=== PATIENT | female | born 1995 | race Caucasian/White ===

== ENCOUNTER 2016-06-17 13:41 | Inpatient (IN) | payer OTHER ==
[2016-06-17] MEDS ORDERED: Acetaminophen TAB* 325 MG PO ONE (14:18)
[2016-06-17 14:41] LABS: Hematocrit 36 % (35-47); Hemoglobin 12.1 g/dl (12.0-16.0); Mean Corpuscular HGB Conc 34 g/dl (31-36); Mean Corpuscular Hemoglobin 29 pg (27-31); Mean Corpuscular Volume 87 fL (80-97); Mean Platelet Volume 8 um3 (7.4-10.4); Red Blood Count 4.17 10^6/ul (4.0-5.4); Red Cell Distribution Width 15 % (10.5-15); White Blood Count 16.1 10^3/ul (3.5-10.8)
[2016-06-17 14:59] LABS: Urine Total Protein/24HR 217 mg/24Hr (0-165)
[2016-06-17] MEDS ORDERED: Acetaminophen TAB* 325 MG ONE (15:02)
[2016-06-17 15:03] LABS: Albumin 3.4 g/dL (3.2-5.2); BUN/Creatinine Ratio 14.9 (8-20); Calcium 8.7 mg/dL (8.6-10.3); EGFR African American 142.9 (>60); EGFR Non-African American 111.1 (>60); Globulin 2.7 g/dL (2-4); Potassium 3.8 mmol/L (3.5-5.0); Total Bilirubin 0.3 mg/dL (0.2-1.0); Total Protein 6.1 g/dL (6.4-8.9); Uric Acid 4.4 mg/dL (2.3-6.6)
[2016-06-17] MEDS ORDERED: Oxytocin in LR* 20 UNITS/1,000 ML BAG IVPB SCH (16:00)
[2016-06-17] MEDS ORDERED: fentaNYL* 50 MCG/ML 2 ML VIAL (100 MCG VIAL) IV SLOW PU ONE (20:30)
[2016-06-17] MEDS ORDERED: OBEPIDURAL* 250 ML ONE (21:05)
[2016-06-18] MEDS ORDERED: Glycerin ADULT SUPP PR PRN (04:57)
[2016-06-18] MEDS ORDERED: Acetaminophen TAB* 325 MG PO PRN (04:57)
[2016-06-18] MEDS ORDERED: Oxytocin in LR* 20 UNITS/1,000 ML BAG IVPB SCH (05:00)
[2016-06-18] MEDS: Ibuprofen TAB* 600 MG PO PRN ×2 (06:15→15:26)
[2016-06-18] MEDS: Witch Hazel PAD* JAR TOPICAL PRN (06:15)
[2016-06-18] MEDS: Dibucaine 1% 28.35 GM TUBE PR PRN (06:15)
[2016-06-18] MEDS ORDERED: Simethicone TAB* 80 MG TAB.CHEW PO SCH (08:30)
[2016-06-18] MEDS: Docusate CAP* 100 MG PO SCH ×3 (09:09→19:44)
[2016-06-18] MEDS: oxyCODONE/Acetamin 5/325 MG* TAB PO PRN (19:44)
[2016-06-19] MEDS: oxyCODONE/Acetamin 5/325 MG* TAB PO PRN ×3 (04:07→12:35)
[2016-06-19] MEDS: Docusate CAP* 100 MG PO SCH ×3 (08:02→20:12)
[2016-06-19 08:16] LABS: Hematocrit 30 % (35-47); Mean Corpuscular HGB Conc 34 g/dl (31-36); Mean Corpuscular Hemoglobin 30 pg (27-31); Mean Corpuscular Volume 88 fL (80-97); Mean Platelet Volume 7 um3 (7.4-10.4); Red Blood Count 3.35 10^6/ul (4.0-5.4); Red Cell Distribution Width 15 % (10.5-15); White Blood Count 13.8 10^3/ul (3.5-10.8)
[2016-06-19] MEDS: Ferrous Gluconate TAB* 324 MG TAB PO SCH ×2 (08:51→20:11)
[2016-06-19] MEDS: Ibuprofen TAB* 600 MG PO PRN (18:07)
[2016-06-19] MEDS: Witch Hazel PAD* JAR TOPICAL PRN (21:11)
[2016-06-20 09:05] VITALS: BP 145/74
[2016-06-20] MEDS: Witch Hazel PAD* JAR TOPICAL PRN (10:54)
[2016-06-20] MEDS: Dibucaine 1% 28.35 GM TUBE PR PRN (10:55)
== END 2016-06-20 10:58 | disposition home or self-care (01) | DRG 560 ==
LOC: MCHOBOUT 13:41 → MCHOB 14:08
PROVIDERS: ADMIT Midwife; ATTEND Midwife
PROC: 10E0XZZ Delivery of Products of Conception, External Approach (ICD-10-PCS; principal; 2016-06-18)
PROC: 10907ZC Drainage of Amniotic Fluid, Therapeutic from Products of Conception, Via Natural or Artificial Opening (ICD-10-PCS; 2016-06-18)
PROC: 3E033VJ Introduction of Other Hormone into Peripheral Vein, Percutaneous Approach (ICD-10-PCS; 2016-06-18)
DX: O13.4 Gestational [pregnancy-induced] hypertension without significant proteinuria, complicating childbirth (principal); O99.344 Other mental disorders complicating childbirth; F17.210 Nicotine dependence, cigarettes, uncomplicated; O77.0 Labor and delivery complicated by meconium in amniotic fluid; O99.334 Smoking (tobacco) complicating childbirth; F32.89 Other specified depressive episodes; Z3A.39 39 weeks gestation of pregnancy; Z37.0 Single live birth
CPT/HCPCS: 36415; 80053; 84156; 84550; 85025; 86850; 86900; 86901; A9270-GY; J3010

== ENCOUNTER 2018-04-15 20:14 | Inpatient (IN) | payer OTHER ==
[2018-04-15 21:14] LABS: ABS Basophils 0.1 10^3/ul (0-0.2); ABS Eosinophils 0.2 10^3/ul (0-0.6); ABS Lymphocytes 1.5 10^3/ul (1.0-4.8); ABS Monocytes 1.1 10^3/ul (0-0.8); ABS Neutrophils 12.6 10^3/ul (1.5-7.7); ABS Nucleated RBC 0 10^3/ul; Hematocrit 40 % (35-47); Hemoglobin 13.4 g/dl (12.0-16.0); Lymphocyte % 9.7 %; Mean Corpuscular HGB Conc 34 g/dl (31-36); Mean Corpuscular Hemoglobin 30 pg (27-31); Mean Corpuscular Volume 88 fL (80-97); Mean Platelet Volume 7.6 fL (7.4-10.4); Nucleated Red Blood Cells % 0; Platelet Count 339 10^3/ul (150-450); Red Blood Count 4.52 10^6/ul (4.00-5.40); Red Cell Distribution Width 15 % (10.5-15); White Blood Count 15.4 10^3/ul (3.5-10.8)
[2018-04-15 21:28] LABS: EGFR Non-African American 87.6 (>60); Uric Acid 4.2 mg/dL (2.3-6.6)
[2018-04-15] MEDS ORDERED: OBEPIDURAL* 250 ML EPIDURAL ONE (21:32)
[2018-04-15] MEDS ORDERED: fentaNYL* 50 MCG/ML 2 ML VIAL (100 MCG VIAL) ONE (21:41)
--- NOTE | 2018-04-15 21:44 | HP ---
General Information - Reason for Visit Patient with a at 36 6/7 weeks in labor. - General Information Maternal Age: 23 Grav: 4 Para: 1 SAB: 2 IEA: 1 Estimated Due Date: 04/30/18 Determined By: Early Ultrasound Gestational Age in Weeks/Days: 36 6/7 Maternal Blood Type and Rh: O Positive - Results this Serology/RPR Result: Non-Reactive Rubella Result: Immune HBsAg Result: Negative HIV Result: Negative GBS Culture Result: Negative Past Medical History Delivery History: Hx Uncomplicated Vaginal Delivery - Induced for Gestational hypertension, See Records Pertinent Past Medical History: See Records Past Medical History Comment: Gestational Hypertension Depression/Anxiety Ectopic Cigarette smoker 5/cigs/day during --1/2pk/day/8years Pertinent Past Surgical History: See Records Past Surgical History Comment: Left Salpingectomy (ectopic ) Pertinent Family History: See Records - Lung Cancer, Bladder cancer, Diabetes - Antepartal Records Antepartal Records: Reviewed, Uncomplicated Review of Systems Constitutional: Uncomfortable CV Complaint: No Respiratory: Shortness of Breath: No Gastrointestinal: No Nausea/Vomiting, Normal Bowel Movement Genitourinary: No Dysuria, No Bleeding, No Leaking Fluid Musculoskeletal: No Complaint, No Epigastric Pain, Contractions Neurological: No Headache, No Visual Changes Movement: Normal Exam Allergies/Adverse Reactions: Allergies No Known Allergies Allergy (Verified 04/15/18 20:43) Temp 98.6 P110's RR 20 POx 100% RA Lab Values - Entire Visit: Laboratory Tests 04/15/18 04/15/18 04/15/18 20:58 20:58 20:58 WBC 15.4 H RBC 4.52 Hgb 13.4 Hct 40 MCV 88 MCH 30 MCHC 34 RDW 15 Plt Count 339 MPV 7.6 Neut % (Auto) 81.7 Lymph % (Auto) 9.7 [place] % (Auto) 7.3 Eos % (Auto) 1.0 Baso % (Auto) 0.3 Absolute Neuts (auto) 12.6 H Absolute Lymphs (auto) 1.5 Absolute Monos (auto) 1.1 H Absolute Eos (auto) 0.2 Absolute Basos (auto) 0.1 Absolute Nucleated RBC 0 Nucleated RBC % 0 Sodium 137 Potassium 3.9 Chloride 106 Carbon Dioxide 22 Anion Gap 9 BUN 9 Creatinine 0.81 Est GFR ( Amer) 106.0 Est GFR (Non-Af Amer) 87.6 BUN/Creatinine Ratio 11.1 Glucose 90 Uric Acid 4.2 Calcium 9.0 Total Bilirubin 0.30 AST 11 L ALT 6 L Alkaline Phosphatase 291 H Total Protein 6.7 Albumin 3.5 Globulin 3.2 Albumin/Globulin Ratio 1.1 Blood Type O Positive - Measurements Height: 5 ft Weight: 147 lb Weight in lbs: 147.930664 Body Mass Index (BMI): 28.7 Pre- Weight: 130 lb Weight Gained This : 17 lbs and 0 ozs - Exam Breast: Breast Exam Deferred CVA: No CVA Tenderness Extremities: No Edema Heart: Normal Rhythm/Heart Sounds HEENT: No Significant Findings Lungs: Clear Bilaterally Rectal: Rectal Exam Deferred Reflexes: DTR 2+ Thyroid: No Thyromegaly - Abdominal Exam Abdomen Exam: Non-Tender, Fundal Height Consistent with Dates - Ultrasound/Biophysical Profile Ultrasound Status: Not Done Targeted Exam Findings See L&D Outpatient Visit Provider Note for Findings: N/A Estimated Weight: 3500 GMs Cervical Exam: 5cm Effacement: 90% Station: -1 Presenting Part: Vertex Membrane Status: Intact EFM Findings - External Monitor Findings Baseline Heart Rate: 130 External Monitor Findings: Accelerations Present Contractions: Irregular, Strong, 45-90 Seconds Assessment/Plan - Assessment at 37 6/7 weeks in labor - Plan Plan: IV Hydration, Admit - Anticipate Vaginal Delivery - Date/Time of Admission Date of Admission: 04/15/18 Time of Admission: 21:40
[2018-04-15] MEDS ORDERED: Phenylephrine IV* 40 MCG/ML 10 ML SYRINGE IV PUSH PRN ×2 (22:42)
[2018-04-15] MEDS ORDERED: Famotidine TAB* 20 MG PO PRN (22:42)
[2018-04-15] MEDS ORDERED: Sodium Citrate/Citric Acid* 15 ML UDC PO PRN (22:42)
[2018-04-15] MEDS ORDERED: OBEPIDURAL* 250 ML EPIDURAL SCH (23:00)
[2018-04-15 23:01] LABS: Urine Appearance Turbid; Urine Blood 3+ (Negative); Urine Ketones Negative (Negative); Urine Protein 1+(30 mg/dL) (Negative); Urine Red Blood Cell 3+(>10/hpf) (Absent); Urine Specific Gravity 1.015 (1.010-1.030); Urine Urobilinogen Negative (Negative); Urine White Blood Cell 3+(>20/hpf) (Absent)
[2018-04-15 23:02] LABS: Urine Color Yellow
[2018-04-16] MEDS ORDERED: Oxytocin in LR* 20 UNITS/1,000 ML BAG IVPB ONE (06:36)
[2018-04-16] MEDS ORDERED: Oxytocin in LR* 20 UNITS/1,000 ML BAG IVPB SCH (07:00)
[2018-04-16] MEDS ORDERED: Glycerin ADULT SUPP PR PRN (08:17)
[2018-04-16] MEDS ORDERED: Dibucaine 1% 28.35 GM TUBE PR PRN (08:17)
[2018-04-16] MEDS ORDERED: Witch Hazel PAD* JAR TOPICAL PRN (08:17)
[2018-04-16] MEDS ORDERED: Acetaminophen TAB* 325 MG PO PRN (08:17)
--- NOTE | 2018-04-16 08:17 | PROCNOTE ---
[facility] OB: Delivery Note - Delivery A Date of : 04/16/18 [place] Sex: Male [place] Weight at : 6 lb 7 oz Score 1 Minute: 9 Score 5 Minutes: 9 Gestational Age in Weeks and Days at Delivery: 38 Weeks and 0 Days Delivery Method: Spontaneous Vaginal Labor: Spontaneous - augmented at second stage Amniotic Fluid: Clear Estimated Blood Loss: 200 - Nursery Level of Nursery: Regular/Bedside - Perineum Perineal Injury: Perineal Laceration, 1st Degree Perineal Repair: By Delivering Practioner - Events Delivery Events of Note: Pitocin During Labor - in second stage
[2018-04-16] MEDS ORDERED: Simethicone TAB* 80 MG TAB.CHEW PO SCH (08:30)
[2018-04-16] MEDS: Docusate CAP* 100 MG PO SCH ×2 (13:23→21:26)
[2018-04-16] MEDS: Ibuprofen TAB* 600 MG PO PRN ×2 (13:25→21:25)
[2018-04-17] MEDS: Ibuprofen TAB* 600 MG PO PRN ×2 (04:11→10:22)
[2018-04-17] MEDS: Docusate CAP* 100 MG PO SCH ×2 (04:16→08:57)
[2018-04-17 06:43] LABS: ABS Basophils 0.1 10^3/ul (0-0.2); ABS Eosinophils 0.2 10^3/ul (0-0.6); ABS Monocytes 1.2 10^3/ul (0-0.8); ABS Neutrophils 11.3 10^3/ul (1.5-7.7); ABS Nucleated RBC 0 10^3/ul; Eosinophil % 1.3 %; Hematocrit 33 % (35-47); Hemoglobin 11.2 g/dl (12.0-16.0); Lymphocyte % 13.4 %; Mean Corpuscular HGB Conc 34 g/dl (31-36); Mean Corpuscular Hemoglobin 30 pg (27-31); Mean Corpuscular Volume 89 fL (80-97); Mean Platelet Volume 7.1 fL (7.4-10.4); Nucleated Red Blood Cells % 0.1; Platelet Count 251 10^3/ul (150-450); Red Blood Count 3.75 10^6/ul (4.00-5.40); Red Cell Distribution Width 15 % (10.5-15); White Blood Count 14.8 10^3/ul (3.5-10.8)
[2018-04-17] MEDS ORDERED: Ferrous Gluconate TAB* 324 MG TAB PO SCH (09:00)
[2018-04-17 13:01] VITALS: BP 131/83
== END 2018-04-17 13:30 | disposition home or self-care (01) | DRG 560 ==
LOC: MCHOBOUT 20:14 → MCHOB 21:08
PROVIDERS: ADMIT Obstetrics & Gynecology; ATTEND Obstetrics & Gynecology
PROC: 10E0XZZ Delivery of Products of Conception, External Approach (ICD-10-PCS; principal; 2018-04-16)
PROC: 10907ZC Drainage of Amniotic Fluid, Therapeutic from Products of Conception, Via Natural or Artificial Opening (ICD-10-PCS; 2018-04-16)
PROC: 0HQ9XZZ Repair Perineum Skin, External Approach (ICD-10-PCS; 2018-04-16)
DX: O99.344 Other mental disorders complicating childbirth (principal); Z37.0 Single live birth; O70.0 First degree perineal laceration during delivery; F41.8 Other specified anxiety disorders; Z3A.38 38 weeks gestation of pregnancy
CPT/HCPCS: 36415; 80053; 81003; 81015; 84550; 85025; 86850; 86900; 86901; 87077; 87086; A9270-GY; J3010

== ENCOUNTER 2018-09-12 20:46 | Emergency (ER) | payer OTHER ==
[2018-09-12 22:27] LABS: ABS Basophils 0 10^3/ul (0-0.2); ABS Eosinophils 0.2 10^3/ul (0-0.6); ABS Lymphocytes 1.8 10^3/ul (1.0-4.8); ABS Monocytes 0.7 10^3/ul (0-0.8); ABS Neutrophils 5.8 10^3/ul (1.5-7.7); ABS Nucleated RBC 0 10^3/ul; Hematocrit 43 % (35-47); Hemoglobin 14.6 g/dL (12.0-16.0); Lymphocyte % 21.1 %; Mean Corpuscular HGB Conc 34 g/dL (31-36); Mean Corpuscular Hemoglobin 30 pg (27-31); Mean Corpuscular Volume 88 fL (80-97); Nucleated Red Blood Cells % 0; Platelet Count 378 10^3/uL (150-450); Red Blood Count 4.86 10^6 /uL (3.70-4.87); Red Cell Distribution Width 16 % (10.5-15); White Blood Count 8.4 10^3/uL (3.5-10.8)
[2018-09-12 22:40] LABS: BUN/Creatinine Ratio 12.3 (8-20); Blood Urea Nitrogen 8 mg/dL (6-24); CO2 Carbon Dioxide 24 mmol/L (22-32); Calcium 9.2 mg/dL (8.6-10.3); EGFR African American 136.7 (>60); Glucose 100 mg/dL (70-100); Potassium 3.5 mmol/L (3.5-5.0); Sodium 144 mmol/L (135-145)
[2018-09-12 22:47] LABS: HCG Pregnancy < 0.60 mIU/mL
[2018-09-12 23:01] LABS: Anion Gap 8 mmol/L (2-11); Chloride 112 mmol/L (101-111)
--- NOTE | 2018-09-12 23:19 | ED ---
Lower Extremity - HPI Summary HPI Summary: 23 year old female presents to the emergency department for evaluation of pain in her lower legs. Pt first noticed the pain earlier today. She describes it as a "shooting pain down the legs" that comes and goes. She feels like constantly has to move her legs to help with the pain. Pt also states she's been feeling lightheaded, particularly with change in positions. She denies weakness, paralysis, incontinence, saddle anesthesia, back pain, recent trauma, N/V, SOB, fever, chills, and abdominal pain. Pt states she suffers from anxiety and has been having frequent attacks. She take 25 mg of seroquel as needed with the last dose taken around 6pm tonight. - History of Current Complaint Chief Complaint: EDGeneral Stated Complaint: FEELS FAINT, RESTLESS LEGS PER PT Hx Obtained From: Patient Hx Last Menstrual Period: 09/23/14 Pain Intensity: 7 - Allergies/Home Medications Allergies/Adverse Reactions: Allergies Allergy/AdvReac Type Severity Reaction Status Date / Time No Known Allergies Allergy Verified 04/15/18 20:43 Home Medications: Home Medications QUEtiapine TAB* [Seroquel 25 MG TAB*] 25 mg PO DAILY PRN 09/12/18 [History Confirmed 09/12/18] PMH/Surg Hx/FS Hx/Imm Hx Previously Healthy: Yes Endocrine/Hematology History: Denies: Hx Diabetes History: Reports: Other Problems/Disorders - Ectopic 2012 Psychiatric History: Reports: Hx Anxiety, Hx Depression - Surgical History Surgery Procedure, Year, and Place: one fallopian tube 2012 Infectious Disease History: No Infectious Disease History: Denies: Hx Clostridium Difficile, Hx Hepatitis, Hx Human Immunodeficiency Virus (HIV), Hx of Known/Suspected MRSA, Hx Shingles, Hx Tuberculosis, Hx Known/ Suspected VRE, Hx Known/Suspected VRSA, History Other Infectious Disease, Traveled Outside the [place] in Last 30 Days - Family History Known Family History: Positive: Non-Contributory - Social History Occupation: Employed Full-time Alcohol Use: None Hx Substance Use: No Substance Use Type: Reports: None Hx Tobacco Use: Yes Smoking Status (MU): Light Every Day Tobacco Smoker Type: Cigarettes Amount Used/How Often: 1/2 PPD Review of Systems Negative: Fever, Chills, Skin Diaphoresis Eyes: Negative Positive: Palpitations, Chest Pain - associated with panic attacks Respiratory: Negative Negative: Shortness Of Breath, Cough Negative: Abdominal Pain, Vomiting, Nausea Positive: no symptoms reported Negative: Myalgia, Decreased ROM, Edema Negative: Rash Negative: Weakness, Paresthesia, Numbness, Syncope Positive: Anxious All Other Systems Reviewed And Are Negative: Yes Physical Exam Triage Information Reviewed: Yes Vital Signs On Initial Exam: Initial Vitals Temp Pulse Resp BP Pulse Ox 97 F 115 18 136/105 99 09/12/18 21:14 09/12/18 21:14 09/12/18 21:14 09/12/18 21:14 09/12/18 21:14 Vital Signs Reviewed: Yes Appearance: Positive: Well-Appearing, No Pain Distress, Well-Nourished Skin: Positive: Warm, Skin Color Reflects Adequate Perfusion, Dry Head/Face: Positive: Normal Head/Face Inspection Eyes: Positive: Normal, EOMI ENT: Positive: Normal ENT inspection, Hearing grossly normal Neck: Positive: Supple Respiratory/Lung Sounds: Positive: Clear to Auscultation, Breath Sounds Present Cardiovascular: Positive: Normal, Pulses are Symmetrical in both Upper and Lower Extremities, Tachycardia Abdomen Description: Positive: Nontender Bowel Sounds: Positive: Present Musculoskeletal: Positive: Normal, Strength/ROM Intact Neurological: Positive: Normal, Sensory/Motor Intact, Alert, Oriented to Person Place, Time, Reflexes Intact Psychiatric: Positive: Affect/Mood Appropriate, Anxious Diagnostics - Vital Signs Vital Signs Temp Pulse Resp BP Pulse Ox 09/12/18 23:04 109 98 09/12/18 23:02 107 126/93 98 09/12/18 21:14 97 F 115 18 136/105 99 - Laboratory Lab Results: Lab Results 09/12/18 09/12/18 Range/Units 22:07 22:07 WBC 8.4 (3.5-10.8) 10^3/uL RBC 4.86 (3.70-4.87) 10^6 /uL Hgb 14.6 (12.0-16.0) g/dL Hct 43 (35-47) % MCV 88 (80-97) fL MCH 30 (27-31) pg MCHC 34 (31-36) g/dL RDW 16 H (10.5-15) % Plt Count 378 (150-450) 10^3/uL MPV 7.0 L (7.4-10.4) fL Neut % (Auto) 68.3 % Lymph % (Auto) 21.1 % [place] % (Auto) 8.0 % Eos % (Auto) 2.0 % Baso % (Auto) 0.6 % Absolute Neuts (auto) 5.8 (1.5-7.7) 10^3/ul Absolute Lymphs (auto) 1.8 (1.0-4.8) 10^3/ul Absolute Monos (auto) 0.7 (0-0.8) 10^3/ul Absolute Eos (auto) 0.2 (0-0.6) 10^3/ul Absolute Basos (auto) 0 (0-0.2) 10^3/ul Absolute Nucleated RBC 0 10^3/ul Nucleated RBC % 0 Sodium 144 (135-145) mmol/L Potassium 3.5 (3.5-5.0) mmol/L Chloride 112 H (101-111) mmol/L Carbon Dioxide 24 (22-32) mmol/L Anion Gap 8 (2-11) mmol/L BUN 8 (6-24) mg/dL Creatinine 0.65 (0.51-0.95) mg/dL Est GFR ( Amer) 136.7 (>60) Est GFR (Non-Af Amer) 113.0 (>60) BUN/Creatinine Ratio 12.3 (8-20) Glucose 100 (70-100) mg/dL Calcium 9.2 (8.6-10.3) mg/dL Beta HCG, Quant < 0.60 mIU/mL Result Diagrams: 09/12/18 22:07 09/12/18 22:07 Lab Statement: Any lab studies that have been ordered have been reviewed, and results considered in the medical decision making process. Lower Extremity Course/Dx - Course Course Of Treatment: Pt presents for evaluation of pain and restlessness in her leg. She also reports dizziness and increase in anxiety with frequent panic attacks. She is in the process of changing providers for her anxiety and only takes seroquel as needed. She denies any weakness, paralysis, incontinence, saddle anesthesia, back pain, recent trauma. Pt's exam, CBC, and CMP were unremarkable. She was advised her leg symptoms are likely a manifestation of her anxiety. 1mg IM ativan and a prescription for 10mg hydroxyzine tabs TID were given for anxiety. Pt instructed to follow up with PCP for further management of anxiety and associated symptoms. Assessment/Plan: I saw the patient in conjunction with the physician bus assistant student. The above history, physical exam and medical decision-making represent my work. Patient has restless legs and anxiety. She was treated here with Ativan with improvement. She will be maintained on outpatient Vistaril until she can be seen by [facility] and her primary care physician. - Diagnoses Differential Diagnosis/HQI/PQRI: Positive: Compartment Syndrome, DVT, Sciatica, Sprain, Strain, Other - akathisia Provider Diagnoses: Akathisia, Anxiety Discharge - Sign-Out/Discharge Documenting (check all that apply): Patient Departure Patient Received Moderate/Deep Sedation with Procedure: No - Discharge Plan Condition: Improved Disposition: HOME Prescriptions: hydrOXYzine HCL TAB* [Atarax 10 MG TAB*] 10 mg PO TID PRN #30 tab PRN Reason: Anxiety Patient Education Materials: Anxiety (ED) Referrals: [facility] [Outside] Charo Patterson MD [Medical Doctor] - Additional Instructions: Call for an appointment or walk-in a [facility] to discuss her anxiety and restless legs. Return if worse, new symptoms or other concerns. Do not drive tonight. - Billing Disposition and Condition Condition: IMPROVED Disposition: Home - Attestation Statements Document Initiated by Scribe: No
[2018-09-12] MEDS ORDERED: Lorazepam PYXIS KEY PRN (23:40)
[2018-09-12] MEDS ORDERED: LORazepam INJ* 2 MG/ML 1 ML VIAL IM ONE (23:40)
[2018-09-13] MEDS ORDERED: Lorazepam PYXIS KEY ONE
[2018-09-13 00:23] VITALS: BP 114/80
== END 2018-09-13 00:10 | disposition home or self-care (01) ==
LOC: ED 20:46
DX: G25.71 Drug induced akathisia (principal); F41.9 Anxiety disorder, unspecified; F17.210 Nicotine dependence, cigarettes, uncomplicated
CPT/HCPCS: 36415; 80048; 84702; 85025; 96372; 96374; 96375; 99282; J2060

== ENCOUNTER 2019-06-24 10:25 | Emergency (ER) | payer SELFPAY ==
[2019-06-24 11:28] LABS: Influenza A Molecular Negative (Negative); Influenza B Molecular Negative (Negative)
--- NOTE | 2019-06-24 13:02 | ED ---
Influenza-Like Illness - HPI Summary HPI Summary: Patient is a 24 y/o F presenting to the ED for a chief complaint of influenza- like symptoms. Patient reports fever, productive cough with brown phlegm, left anterior chest tightness, generalized body aches, upper back pain, and sore throat that has since resolved. The upper back pain is rated as an 8/10 in severity. Patient denies any chills, erythema of eyes, shortness of breath, abdominal pain, nausea, vomiting, dysuria, hematuria, edema, rash, or dizziness. Previously, patient was diagnosed with strep throat and placed on 2 courses of antibiotics. Recently, she was diagnosed with right-sided pneumonia on 06/20/19 for which she completed a course of antibiotics on 06/24/19. PMHx of asthma is denied. PSHx is significant for ectopic surgery in 2012. She did not receive an influenza vaccination this season. She admits tobacco use of 1/2 ppd. - History of Current Complaint Chief Complaint: EDFluSymptoms Time Seen by Provider: 06/24/19 12:53 Hx Obtained From: Patient Onset/Duration: Sudden Onset, Still Present Severity: Moderate Associated Signs & Symptoms: Fever - In vitals, 97.8 F, Myalgia - Generalized body aches and upper back, Cough - Productive with brown phlegm, Sore Throat - Resolved - Allergy/Home Medications Allergies/Adverse Reactions: Allergies Allergy/AdvReac Type Severity Reaction Status Date / Time No Known Allergies Allergy Verified 06/24/19 10:29 PMH/Surg Hx/FS Hx/Imm Hx Previously Healthy: Yes Endocrine/Hematology History: Denies: Hx Diabetes Respiratory History: Denies: Hx Asthma History: Reports: Other Problems/Disorders - Ectopic 2012 Sensory History: Denies: Hx Legally Blind, Hx Deafness Opthamlomology History: Denies: Hx Legally Blind EENT History: Denies: Hx Deafness Psychiatric History: Reports: Hx Anxiety, Hx Depression - Surgical History Surgical History: Yes Surgery Procedure, Year, and Place: one fallopian tube 2012 Infectious Disease History: No Infectious Disease History: Denies: Hx Clostridium Difficile, Hx Hepatitis, Hx Human Immunodeficiency Virus (HIV), Hx of Known/Suspected MRSA, Hx Shingles, Hx Tuberculosis, Hx Known/ Suspected VRE, Hx Known/Suspected VRSA, History Other Infectious Disease, Traveled Outside the [place] in Last 30 Days - Family History Known Family History: Negative: Diabetes, Respiratory Disease - Social History Occupation: Employed Full-time Alcohol Use: None Hx Substance Use: No Substance Use Type: Reports: None Hx Tobacco Use: Yes Smoking Status (MU): Heavy Every Day Tobacco Smoker Type: Cigarettes Amount Used/How Often: 1/2 PPD Review of Systems Positive: Fever - In vitals, 97.8 F. Negative: Chills Negative: Erythema Positive: Sore Throat - Resolved Positive: Chest Pain - Left anterior chest tightness Positive: Cough - Productive with brown phlegm. Negative: Shortness Of Breath Negative: Abdominal Pain, Vomiting, Nausea Negative: dysuria, hematuria Positive: Myalgia - Generalized body aches and upper back. Negative: Edema Negative: Rash Neurological: Other - Negative dizziness All Other Systems Reviewed And Are Negative: Yes Physical Exam - Summary Physical Exam Summary: Constitutional: Well-developed, Well-nourished, Alert. (-) Distressed Skin: Warm, Dry HENT: Normocephalic; Atraumatic Eyes: Conjunctiva normal Neck: Musculoskeletal ROM normal neck. (-) JVD, (-) Stridor, (-) Tracheal deviation Cardio: Rhythm regular, rate normal, Heart sounds normal; Intact distal pulses; The pedal pulses are 2+ and symmetric. Radial pulses are 2+ and symmetric. (-) Murmur Pulmonary/Chest wall: Effort normal. (-) Respiratory distress, (-) Wheezes, (-) Rales. Crackles in the right upper lung field. Abd: Soft, (-) tenderness, (-) Distension, (-) Guarding, (-) Rebound Musculoskeletal: (-) Edema Lymph: (-) Cervical adenopathy Neuro: Alert, Oriented x3 Psych: Mood and affect Normal Triage Information Reviewed: Yes Vital Signs On Initial Exam: Initial Vitals Temp Pulse Resp BP Pulse Ox 97.8 F 104 18 151/101 97 06/24/19 10:27 06/24/19 10:27 06/24/19 10:27 06/24/19 10:06/24/19 10:27 Vital Signs Reviewed: Yes Procedures - Sedation Patient Received Moderate/Deep Sedation with Procedure: No Diagnostics - Vital Signs Vital Signs Temp Pulse Resp BP Pulse Ox 06/24/19 10:27 97.8 F 104 18 151/101 97 - Laboratory Lab Results: Lab Results 06/24/19 Range/Units 10:30 Influenza A (Rapid) Negative (Negative) Influenza B (Rapid) Negative (Negative) Result Diagrams: 06/24/19 13:13 06/24/19 13:13 Lab Statement: Any lab studies that have been ordered have been reviewed, and results considered in the medical decision making process. - Radiology Chest X-ray Radiology Interpretation Completed By: Radiologist Summary of Radiographic Findings: Chest X-ray IMPRESSION: No active cardiopulmonary disease is noted. Reviewed by Dr. Whatley. - EKG 13:58 Cardiac Rate: NL - 79 BPM EKG Rhythm: Sinus Rhythm ST Segment: Normal Ectopy: None Summary of EKG Findings: EKG at 13:58 shows normal sinus rhythm with 79 BPM, anteroseptal Q waves, no STEMI. Reviewed and interpreted by Dr. Whatley. Flu Symptom Course/Dx - Course Course Of Treatment: Patient is a 24 y/o F presenting to the ED for a chief complaint of influenza-like symptoms. Patient reports fever, productive cough with brown phlegm, left anterior chest tightness, generalized body aches, upper back pain, and sore throat that has since resolved. The upper back pain is rated as an 8/10 in severity. Patient denies any chills, erythema of eyes, shortness of breath, abdominal pain, nausea, vomiting, dysuria, hematuria, edema , rash, or dizziness. Previously, patient was diagnosed with strep throat and placed on 2 courses of antibiotics. Recently, she was diagnosed with right- sided pneumonia on 06/20/19 for which she completed a course of antibiotics on 06/24/19. PMHx of asthma is denied. PSHx is significant for ectopic surgery in 2012. She did not receive an influenza vaccination this season. She admits tobacco use of 1/2 ppd. On exam, crackles in the right upper lung field. In the ED course, patient was given albuterol 1 neb INH, Toradol 60 mg IM, vibromycin 100 mg PO, and prednisone 50 mg PO. At 14:54, patient still having back pain. D-dimer is pending. EKG at 13:58 shows normal sinus rhythm with 79 BPM, anteroseptal Q waves, no STEMI. Chest X-ray IMPRESSION: No active cardiopulmonary disease is noted. Laboratory abnormal findings: RBC 5.53, Hgb 17.4, Hct 50, MCH 32, MPV 6.9, INR 1.21. D-dimer is negative. Patient will be discharged with a diagnosis of bronchitis. Follow up with PCP in 2-3 days. - Diagnoses Provider Diagnoses: Bronchitis Discharge ED - Sign-Out/Discharge Documenting (check all that apply): Patient Departure - Discharge - Discharge Plan Condition: Stable Disposition: HOME Prescriptions: Albuterol 2.5MG/3ML (0.083%)* [Ventolin 2.5 MG/3 ML NEB.MOMO*] 2.5 mg INH Q4H PRN #60 neb.momo PRN Reason: Sob/Wheezing Albuterol HFA INHALER* [Ventolin HFA Inhaler*] 1 puff INH Q4H PRN #1 mdi PRN Reason: Wheezing HYDROcodone/ACETAMIN 5-325 MG* [[place]ious 5-325 TAB*] 1 tab PO Q6H PRN #20 tab MDD 4 PRN Reason: Pain - Severe Nebulizer and Compressor [[place] Choice Nebulizer] 1 each MC Q4H PRN #1 each PRN Reason: Shortness Of Breath predniSONE 50 mg TAB [Deltasone 50 mg TAB] 50 mg PO DAILY #4 tab Patient Education Materials: Acute Bronchitis (ED) Referrals: [facility] [Outside] Additional Instructions: RETURN TO THE EMERGENCY DEPARTMENT FOR CHANGING OR WORSENING SYMPTOMS. Follow up with your primary care provider in 2-3 days. - Attestation Statements Document Initiated by Scribe: Yes Documenting Scribe: Kadie Malone Provider For Whom Scribe is Documenting (Include Credential): Asaf Whatley MD Scribe Attestation: Kadie Ramirez, scribed for Asaf Whatley MD on 06/24/19 at 1516. Status of Scribe Document: Ready
[2019-06-24] MEDS ORDERED: Ketorolac *IM* INJ* 60 MG/2 ML VIAL IM ONE (13:05)
[2019-06-24] MEDS ORDERED: Albuterol/Ipratropium NEB.SOL* Albuterol 2.5 MG/Ipratropium 0.5 MG 3 ML INH ONE (13:05)
[2019-06-24 13:31] LABS: ABS Monocytes 0.4 10^3/ul (0-0.8); ABS Neutrophils 6.4 10^3/ul (1.5-7.7); Eosinophil % 0.4 %; Hematocrit 50 % (35-47); Hemoglobin 17.4 g/dL (12.0-16.0); Lymphocyte % 13.2 %; Mean Corpuscular HGB Conc 35 g/dL (31-36); Mean Corpuscular Hemoglobin 32 pg (27-31); Mean Corpuscular Volume 91 fL (80-97); Mean Platelet Volume 6.9 fL (7.4-10.4); Nucleated Red Blood Cells % 0.1; Platelet Count 358 10^3/uL (150-450); Red Blood Count 5.53 10^6 /uL (3.70-4.87); Red Cell Distribution Width 13 % (10-15); White Blood Count 7.9 10^3/uL (3.5-10.8)
[2019-06-24 13:42] LABS: Activated Partial Thrombo Time 34.9 seconds (26.0-38.0); INR 1.21 (0.82-1.09)
[2019-06-24 13:49] LABS: Albumin 5.1 g/dL (3.2-5.2); Albumin/Globulin Ratio 1.8 (1-3); BUN/Creatinine Ratio 10.8 (8-20); Calcium 9.8 mg/dL (8.6-10.3); EGFR African American 135.5 (>60); Globulin 2.8 g/dL (2-4); Potassium 3.9 mmol/L (3.5-5.0); Total Bilirubin 0.6 mg/dL (0.2-1.0); Total Protein 7.9 g/dL (6.4-8.9)
[2019-06-24] MEDS ORDERED: DOXYcycline CAP(*) 100 MG PO ONE (14:07)
[2019-06-24] MEDS ORDERED: oxyCODONE/Acetamin 5/325 MG* TAB PO ONE (14:47)
[2019-06-24 15:32] VITALS: BP 130/93
== END 2019-06-24 15:32 | disposition home or self-care (01) ==
LOC: ED 10:25
DX: J40 Bronchitis, not specified as acute or chronic (principal); F41.9 Anxiety disorder, unspecified; F32.9 Major depressive disorder, single episode, unspecified; F17.210 Nicotine dependence, cigarettes, uncomplicated
CPT/HCPCS: 36415; 71046; 80053; 83605; 84484; 85025; 85379; 85610; 85730; 87040; 93005; 96372; 99283; A9270-GY; J1885; J7512

== ENCOUNTER 2022-11-15 04:05 | Inpatient (IN) ==
[2022-11-15] MEDS ORDERED: Promethazine INJ(RESTRICTED) 25 MG/ML 1 ml VIAL IV PRN (06:19)
[2022-11-15] MEDS ORDERED: Nalbuphine 10 MG/ML 1 ML VIAL IV PRN (06:19)
[2022-11-15] MEDS ORDERED: Buffered Lidocaine 1% SYRIN 1 ml INTRADERM ONE (06:19)
[2022-11-15] MEDS ORDERED: Lactated Ringers 1000 ml BAG 1,000 ML IV ONE ×2 (06:54→13:00)
[2022-11-15] MEDS ORDERED: Glycerin ADULT 2.4 gm SUPP PR ONE (08:53)
[2022-11-15] MEDS ORDERED: Penicillin G Potassium IV 5,000,000 UNITS in NS 0.9% 100 ml BAG 100 ML IVPB ONE (11:35)
[2022-11-15] MEDS: Lactated Ringers 1000 ml BAG 1,000 ML IV SCH ×2 (11:35→13:41)
[2022-11-15] MEDS ORDERED: OBEPIDURAL (200 ML) 200 ML EPIDURAL ONE (11:38)
[2022-11-15] MEDS ORDERED: Lidocaine 1.5% EPI 1:200,000 30 ML SDV ONE (11:38)
[2022-11-15 11:41] LABS: Hematocrit 34.2 % (35-45); Hemoglobin 11.2 g/dL (11.5-14.3); Mean Corpuscular Hemoglobin 26.3 pg (27-33); Mean Corpuscular Hgb Conc 32.7 g/dL (31-36); Mean Corpuscular Volume 80.5 fL (80-97); Mean Platelet Volume 7.8 fL (7.5-11.2); Platelet Count 348 10^3/uL (150-450); Red Blood Count 4.25 10^6/uL (3.63-4.92); Red Cell Distribution Width 15.9 % (12-17); White Blood Count 13.8 10^3/uL (3.8-11.8)
[2022-11-15 12:17] LABS: Urine Benzodiazepine Screen None Detected (None Detect); Urine Cannabinoids Screen None Detected (None Detect); Urine Opiates Screen None Detected (None Detect)
[2022-11-15] MEDS ORDERED: Bupivacaine 0.25% SDV PF 10 ML VIAL INJ ONE (12:23)
[2022-11-15] MEDS ORDERED: fentaNYL 100 mcg/2 ml 50 MCG/ML VIAL ONE (12:23)
[2022-11-15] MEDS ORDERED: Phenylephrine 40 mcg/mL 10mL (400mcg) SYRINGE IV PUSH PRN ×2 (13:00)
[2022-11-15] MEDS ORDERED: OBEPIDURAL (200 ML) 200 ML EPIDURAL SCH (13:00)
[2022-11-15] MEDS ORDERED: Lactated Ringers 1000 ml BAG 1,000 ML IV SCH ×2 (13:00→23:00)
[2022-11-15] MEDS ORDERED: Sodium Citrate/Citric Acid LIQ 15 ML UDC PO PRN (13:00)
[2022-11-15 16:33] LABS: Urine Bacteria Absent (Absent); Urine Red Blood Cell Trace(0-2/hpf) (Absent); Urine Renal Epithelial Cells Present (Absent); Urine White Blood Cell Absent (Absent)
[2022-11-15 16:43] LABS: Urine Appearance Clear; Urine Bilirubin Negative (Negative); Urine Blood Negative (Negative); Urine Color Straw; Urine Glucose 3+(>=500 mg/dL) (Negative); Urine Ketones Negative (Negative); Urine Nitrite Negative (Negative); Urine Protein Negative (Negative); Urine Specific Gravity 1.002 (1.002-1.030); Urine Urobilinogen Negative (Negative)
[2022-11-15] MEDS ORDERED: Penicillin G Potassium IV 3,000,000 UNITS in NS 0.9% 100 ml BAG 100 ML IVPB SCH (17:00)
[2022-11-15] MEDS ORDERED: Oxytocin in LR 20,000 MILLI.UNIT/1,000 ML BAG IV SCH ×2 (20:30→22:45)
[2022-11-15 21:22] LABS: Urine Benzodiazepine Screen None Detected (None Detect); Urine Opiates Screen None Detected (None Detect)
[2022-11-15] MEDS ORDERED: Witch Hazel PAD JAR TOPICAL PRN (22:33)
[2022-11-15] MEDS ORDERED: Glycerin ADULT 2.4 gm SUPP PR PRN (22:33)
[2022-11-15] MEDS ORDERED: Dibucaine 1% OINT 28.35 GM TUBE PR PRN (22:33)
[2022-11-16 07:09] LABS: ABS Eosinophils 0.1 10^3/uL (0.0-0.5); ABS Lymphocytes 1.3 10^3/uL (1.0-4.8); ABS Neutrophils 12.1 10^3/uL (1.5-7.6); ABS Nucleated RBC 0.01 10^3/ul; Eosinophil % 0.9 %; Hematocrit 28.9 % (35-45); Hemoglobin 9.7 g/dL (11.5-14.3); Lymphocyte % 8.8 %; Mean Corpuscular Hemoglobin 27.2 pg (27-33); Mean Corpuscular Hgb Conc 33.7 g/dL (31-36); Mean Corpuscular Volume 80.9 fL (80-97); Mean Platelet Volume 7.4 fL (7.5-11.2); Platelet Count 291 10^3/uL (150-450); Red Blood Count 3.57 10^6/uL (3.63-4.92); Red Cell Distribution Width 15.9 % (12-17); White Blood Count 14.5 10^3/uL (3.8-11.8)
[2022-11-17 08:39] VITALS: BP 136/91
== END 2022-11-17 16:45 | disposition home or self-care (01) | DRG 560 ==
LOC: MCHOBOUT 04:05 → MCHOB 11:31
PROVIDERS: ADMIT Midwife; ATTEND Midwife